=== PATIENT | male | born 2000 | race Two or more races ===

== ENCOUNTER → 2025-02-13 | Outpatient (CLI) | payer BC, SELFPAY ==
[2025-02-13 10:32] LABS: Immature Reticulocyte Fraction 3.1 % (2.3-13.4); Reticulocyte % (Auto) 1.3 % (0.5-1.5); Reticulocyte Absolute Auto 59.5 Biln/L (25.0-75.0); Reticulocyte Hgb Content 35.5 pg (28.0-35.0)
[2025-02-13 10:45] LABS: Glucose Estimated Average 94 mg/dL (80-131); Hemoglobin A1C 4.9 % Hgb (4.8-6.0)
[2025-02-13 10:48] LABS: Ferritin 139 ng/mL (10.5-307.3); Iron 90 mcg/dL (65-175); Percent Iron Saturation 28 % (20-55); T4 (Thyroxine) 6.7 mcg/dL (4.5-10.9); Total Iron Binding Capacity 314 mcg/dL (250-425); Unsaturated Iron Binding 224 (225-295)
[2025-02-13 10:55] LABS: HIV (1&2) Antibody Rapid Non-Reactive; Vitamin B12 273 pg/mL (211-911); Vitamin D 25 Hydroxy Total 29.6 ng/mL (7.3-40.2)
[2025-02-13 11:03] LABS: Alanine Aminotransferase 21 U/L (10-49); Albumin, Serum 4.4 gm/dL (3.5-5.0); Albumin/Globulin Ratio 1.5 (1.2-2.2); Alkaline Phosphatase 83 U/L (46-116); Anion Gap 9 (7-16); Aspartate Amino Transferase 25 U/L (0-34); BUN/Creatinine Ratio 13 Ratio (12-20); Bilirubin,Total 0.9 mg/dL (0.3-1.2); Blood Urea Nitrogen 12 mg/dL (9-23); Calcium 9.5 mg/dL (8.3-10.6); Calcium (Corrected) 9.5 mg/dL (8.5-10.1); Carbon Dioxide 30.3 mMol/L (20.0-31.0); Cardiac Risk Estimate 3.5 RATIO (4.0-6.7); Chloride 103 mMol/L (98-107); Cholesterol 174 mg/dL (132-200); Creatinine (Component) 0.9 mg/dL (0.6-1.3); Free T4 (Free Thyroxine) 1.16 ng/dL (0.89-1.76); Globulin 2.9 gm/dL (2.3-3.5); Glucose 91 mg/dL (74-106); HDL Cholesterol 50 mg/dL (40-60); LDL Cholesterol,Calculated 91 mg/dL (0-130); Osmolality,Calculated 282 (275-295); Potassium 4.4 mMol/L (3.4-5.1); Sodium 142 mMol/L (136-145); Thyroid Stimulating Hormone 2.74 uIU/mL (0.55-4.78); Total Protein 7.3 gm/dL (5.7-8.2); Triglycerides 166 mg/dL (30-150); eGFR > 60 See Note
[2025-02-13 11:05] LABS: Syphilis Nonreactive (Nonreactive)
[2025-02-13 14:33] LABS: Chlamydia trachomatis PCR Negative (Not Detect); Neisseria Gonorrhoeae DNA PCR Negative (Not Detect); Trichomonas Negative (Negative)
[2025-02-17 06:17] LABS: T3,Total* 111 ng/dL (76-181)
== END | disposition home or self-care (01) ==
LOC: COPL 08:58
PROVIDERS: PCP Nurse Practitioner Family; Referring Provider Nurse Practitioner Family; Visit Provider Nurse Practitioner Family
DX: D57.1 Sickle-cell disease without crisis (principal); R53.83 Other fatigue; Z11.3 Encounter for screening for infections with a predominantly sexual mode of transmission
CPT/HCPCS: 36415; 80053; 80061; 82306; 82607; 82728; 83036; 83540; 83550; 84436; 84439; 84443; 84480; 85046; 86703; 86780; 87491; 87591; 87661